=== PATIENT | male | born 1960 | race Caucasian/White ===

== ENCOUNTER 2022-01-20 11:16 | Outpatient (CLI) | payer OTHER, SELFPAY ==
[2022-01-20 09:35] LABS: Albumin* 4.4 g/dL (3.3-5.0)
[2022-01-20 09:36] LABS: Chloride* 105 mmol/L (96-114); Potassium* 4.3 mmol/L (3.6-5.1); Sodium* 138 mmol/L (135-149)
[2022-01-20 09:38] LABS: Aspartate Amino Transferase* 24 U/L (12-35); Bilirubin Total* 1.4 mg/dL (0.1-1.5); Blood Urea Nitrogen* 20 mg/dL (7-30); Carbon Dioxide* 26 mmol/L (20-32); Cholesterol* 188 mg/dL (90-199); Creatinine* 0.9 mg/dL (0.5-1.5); Estimated Glomerular Filt Rate 97 ml/min
[2022-01-20 09:39] LABS: Alanine Aminotransferase* 29 U/L (4-50); Alkaline Phosphatase* 67 U/L (40-150); Calcium* 9.3 mg/dL (8.4-10.6); Glucose* 105 mg/dL (60-115); HDL Cholesterol* 49 mg/dL (>=40); LDL Cholesterol Calculated 118 mg/dL (<100); Triglycerides* 104 mg/dL (40-149)
[2022-01-20 10:04] LABS: PSA Diagnostic* 0.89 ng/mL (0.10-4.00)
== END 2022-01-20 11:17 | disposition home or self-care (01) ==
PROVIDERS: PCP Internal Medicine; Visit Provider Internal Medicine
DX: Z00.00 Encounter for general adult medical examination without abnormal findings (principal); Z13.6 Encounter for screening for cardiovascular disorders; Z12.5 Encounter for screening for malignant neoplasm of prostate
CPT/HCPCS: 80053; 80061; 84153

== ENCOUNTER 2022-03-18 15:10 | Outpatient (CLI) | payer OTHER, SELFPAY ==
--- OUTSIDE RECORDS SUMMARY | 2022-03-18 15:17 | XMS_ITS | Clinical Summary ---
:1960 Author Organization [employer] [facility] [place] [address] Care Team Providers Name Role Phone Joon Todd MD Primary Care Provider Allergies Active Allergy Reactions Severity Noted Date Comments Amoxicillin Hives 06/20/2020 Medications Medication Sig Dispensed Refills Start Date End Date Status atorvastatin Take 40 mg by mouth 0 Active (LIPITOR) 40 mg once daily. tablet acetaminophen Take 1-2 tablets by 0 09/08/2018 Active (TYLENOL) 325 mg mouth every 4 hours tablet if needed (For mild pain.). Max acetaminophen dose: 4000mg in 24 hrs. metoprolol tartrate Take 1 tablet by 0 05/10/2020 Active (LOPRESSOR) 25 mg mouth 2 times daily tabletIndications: if needed for Other Atrial flutter with (Specify). rapid ventricular response (HC) famotidine (PEPCID) Take 20 mg by mouth 0 Active 20 mg tablet 2 times daily. fluticasone (50 mcg Inhale 1 [place] in 0 11/23/2019 Active per actuation) nasal the nostril(s) once solution (FLONASE) daily if needed. Active Problems Problem Noted Date Typical atrial flutter 09/08/2018 Profound impairment, one eye, impairment level not fur ther specified 02/07/2007 Overview: left side Other pulmonary embolism and infarction 01/10/2005 Prediabetes Hyperlipidemia LDL goal < 160 Overview: ldl goal <160 Encounters Date Type Specialty Care Team Description 03/18/2022 Office Visit Brant Osullivan, [place] Hearing Problem 03/18/2022 Travel from Last 3 Months Immunizations Name Administration Dates Next Due Influenza, IIV3 (Age >=3 years) 02/07/2007 Td (Age >=7 Years) 11/24/2001 Family History Medical History Relation Name Comments Heart Disease Brother 6 Hypertension Brother 7 Diabetes Brother 8 Stroke Brother 9 Arthritis Father Other Father blood clots in l egs Stroke Father Diabetes Mother Heart Disease Mother Other Son 3 Marfanoid phenot ype, but nature photographer feels this is not Marfan's Relation Name Status Comments Brother 1 (Age 53) heart disease Brother 2 Alive Brother 3 Alive Brother 4 Alive Brother 5 Alive Brother 6 Brother 7 Brother 8 Brother 9 Father (Age 82) Mother (Age 76) Sister 1 Alive Sister 2 Alive Son 1 Alive Son 2 Alive Son 3 Social History Tobacco Use Types Packs/Day Years Used Date Former Smoker Cigarettes 0.25 10 Quit: 04/12/18 87 Smokeless Tobacco: Never Used Alcohol Use Standard Drinks/Week Comments Yes 0 (1 standard drink = 0.6 oz pure alcoho l) 5-6 beers per weekend Alcohol Habits Answer Date Recorded How often do you have a drink containing alcohol? Not asked How many drinks containing alcohol do you have on Not asked a typical day when you are drinking? How often do you have six or more drinks on one Not asked occasion? Comment: 5-6 beers per weekend 01/29/2009 Sex Assigned at Date Recorded Not on file COVID-19 Exposure Response Date Recorded In the last 10 days, have you been in contact with No / Unsu re 03/18/2022 9:57 AM [facility] someone who was confirmed or suspected to have Coronavirus/COVID-19? Obstetrics History Last Filed Vital Signs Vital Sign Reading Time Taken Comments Blood Pressure 126/80 09/25/2020 11:25 AM CDT Pulse 70 09/25/2020 11:25 AM CDT Temperature 36.8 ??C (98.3 ??F) 06/20/2020 2:30 PM [facility] Respiratory Rate 16 06/20/2020 2:30 PM [facility] Oxygen Saturation 96% 09/25/2020 11:25 AM CDT Inhaled Oxygen Concentration - - Weight 106.1 kg (234 lb) 09/25/2020 11:25 AM CDT Height 193 cm (6' 4) 09/25/2020 11:25 AM CDT Body Mass Index 28.48 09/25/2020 11:25 AM CDT Plan of Treatment Health Maintenance Due Date Last Done Comments Tdap 1970 Depression screening for age 12+ 1971 HIV for age 15-65 1974 Hepatitis C screening for age 1102/27/1977 18-79 Zoster (shingles) series for age 1102/27/2009 50+ (1 of 2) Tetanus booster 11/25/2011 11/24/2001 Lipids for age 45-75 12/02/2014 12/02/2009, 01/29/2009, 12/23/2007, Additional history exists Colonoscopy through age 75 07/03/2020 07/03/2010 COVID-19 vaccine series (4 - 07/10/2021 05/15/2021, 021, Booster for Pfizer series) 06/25/2020 BMI (ht and wt on same day) for 09/25/2021 09/25/2020, 05/13, age 18+ 10/25/2018 Influenza for age 50-64 12/11/2021 02/07/2007 Results Not on filefrom Last 3 Months Insurance Payer Benefit Plan / Subscriber ID Effective Dates Phone Addre ss Type Group MEDICA MEDICA CHOICE [id number] 2020-Present [address] [address] [place] [address] (Work) [id number] Advance Directives Latest Code Status on File Code Status Date Activated Date Inactivated Comments Full Code 06/20/2020 9:41 AM 06/20/2020 5:04 PM Code Status Discussion: Per Advance Care Plan Full Code 09/07/2018 4:37 PM 09/08/2018 12:25 PM Care Teams Hoop Cutter Relationship Specialty Start Date End Date Joon Todd MD PCP - General Internal Medicine 10/25/181999 [place] [address]
== END 2022-03-18 15:11 | disposition home or self-care (01) ==
LOC: NFLDREF 15:11
PROVIDERS: PCP Internal Medicine; Visit Provider Internal Medicine
DX: R55 Syncope and collapse (principal)
CPT/HCPCS: 84443

== ENCOUNTER 2022-05-11 14:48 | Outpatient (CLI) | payer OTHER, SELFPAY | END 2022-05-11 14:49 | disposition home or self-care (01) | LOC: RAD 14:49 | PROVIDERS: PCP Internal Medicine; Visit Provider Internal Medicine | DX: I49.3 Ventricular premature depolarization (principal); I51.7 Cardiomegaly | CPT/HCPCS: 93306 ==

== ENCOUNTER 2024-07-14 09:20 | Outpatient (CLI) | payer MEDICARE, SELFPAY | END 2024-07-14 09:21 | disposition home or self-care (01) | LOC: NFLDREF 07-23 14:13 | PROVIDERS: PCP Internal Medicine; Referring Provider Internal Medicine; Visit Provider Internal Medicine | DX: I10 Essential (primary) hypertension (principal); E78.5 Hyperlipidemia, unspecified; Z12.5 Encounter for screening for malignant neoplasm of prostate | CPT/HCPCS: 80053; 80061; G0103 ==

== ENCOUNTER 2024-07-18 11:17 | Outpatient (CLI) | payer MEDICARE, SELFPAY | END 2024-07-18 11:18 | disposition home or self-care (01) | LOC: NFLDREF 07-24 01:52 | PROVIDERS: PCP Internal Medicine; Referring Provider Internal Medicine; Visit Provider Internal Medicine | DX: R35.0 Frequency of micturition (principal); R21 Rash and other nonspecific skin eruption | CPT/HCPCS: 87086 ==